=== PATIENT | male | born 1960 | race Hispanic/Latino ===

== ENCOUNTER 2023-01-31 05:57 | Day surgery (SDC) | payer OTHER ==
[2023-01-28 09:31] LABS: BASOPHILS # (AUTO) 0.1 (0.0-0.1); BASOPHILS % 0.8 % (0.0-1.0); EOSINOPHILS # (AUTO) 0.2 (0.0-0.4); EOSINOPHILS % 3.5 % (0.0-6.0); HEMATOCRIT 43.7 % (38.2-49.6); HEMOGLOBIN 14.7 g/dL (14.0-18.0); LYMPHOCYTES # (AUTO) 2.4 (1.0-3.2); LYMPHOCYTES % 38.7 % (18.0-39.1); MEAN CORPUSCULAR HEMOGLOBIN 30.6 pg (28-32); MEAN CORPUSCULAR HGB CONC 33.6 g/dL (31-35); MEAN CORPUSCULAR VOLUME 90.9 fL (81-99); MONOCYTES # (AUTO) 0.6 (0.2-0.8); MONOCYTES % 10.1 % (4.4-11.3); NEUTROPHILS # (AUTO) 2.9 (2.1-6.9); NEUTROPHILS % 46.6 % (38.7-80.0); PLATELET COUNT 218 x10e3/uL (140-360); RED BLOOD COUNT 4.81 x10e6/uL (4.3-5.7); RED CELL DISTRIBUTION WIDTH 13.3 % (11.7-14.4)
[2023-01-28 09:50] LABS: ANION GAP 11.8 mmol/L (8-16); BLOOD UREA NITROGEN 13 mg/dL (7-26); BUN/CREATININE RATIO 16 (6-25); CALCIUM 9.6 mg/dL (8.4-10.2); CARBON DIOXIDE 26 mmol/L (22-29); CHLORIDE 106 mmol/L (98-107); CREATININE, SERUM 0.81 mg/dL (0.72-1.25); GLUCOSE 111 mg/dL (74-118); POTASSIUM 3.8 mmol/L (3.5-5.1); SODIUM 140 mmol/L (136-145)
[~2023-01-31 05:57] MED LIST: AMLODIPINE BESYL5 MG PO; ATORVASTATIN CA20 MG PO; CELEBREX200 MG PO; HYDROCHLOROTHIA25 MG; LISINOPRIL10 MG PO
[2023-01-31] MEDS ORDERED: CELECOXIB 200 MG CAP ONE (06:34)
[2023-01-31] MEDS ORDERED: DEXAMETHASONE SOD PHOS 10 MG/1 ML VIAL ONE (06:35)
[2023-01-31] MEDS ORDERED: GABAPENTIN 300 MG CAP ONE (06:35)
[2023-01-31] MEDS ORDERED: CEFAZOLIN SODIUM 2 GM ONE (06:35)
[2023-01-31] MEDS ORDERED: LACTATED RINGER'S 1,000 ML ONE (06:35)
[2023-01-31] MEDS ORDERED: Vancomycin IV 1,000 MG ONE (06:49)
[2023-01-31] MEDS ORDERED: SODIUM CHLORIDE 0.9% 500ML 500 ML ONE (06:49)
[2023-01-31] MEDS ORDERED: TRANEXAMIC ACID 20 ML ONE (06:49)
[2023-01-31] MEDS ORDERED: ROPIVACAINE 246.25 MG, EPINEPHRINE HCL 1:1000 1ML 0.5 MG, CLONIDINE HCL 0.08 MG, KETORO... INJ ONE ×5 (07:30)
[2023-01-31] MEDS ORDERED: DOCUSATE SODIUM 100 MG CAP PO PRN (09:30)
[2023-01-31] MEDS ORDERED: HYDROCODONE/APAP 7.5MG-325MG 1 EA TAB PO PRN (09:30)
[2023-01-31] MEDS ORDERED: SODIUM CHLORIDE 0.9% 1000ML 1,000 ML IV SCH (09:30)
[2023-01-31] MEDS ORDERED: HYDROCODONE/APAP 5MG-325MG TAB PO PRN (09:30)
[2023-01-31] MEDS ORDERED: DIPHENHYDRAMINE HCL INJ 50 MG/ML VIAL IV PRN (09:30)
[2023-01-31] MEDS ORDERED: ONDANSETRON HCL INJ 2MG/ML 2ML 2 MG/ML VIAL IV PRN (09:30)
[2023-01-31 09:43] VITALS: TEMP 98.8
[2023-01-31] MEDS: FENTANYL CITRATE/PF 100MCG/2 ML INJ ONE ×2 (10:04→10:09)
[2023-01-31] MEDS ORDERED: IOPAMIDOL 370 MG/ML 100 ML INFUS..BTL INJ ONE (10:31)
[2023-01-31] MEDS ORDERED: HYDROCODON-ACE1 EA12 PO (11:39)
[2023-01-31 12:00] VITALS: BP 139/85; PULSE 93; RESP 16; O2SAT 97
[2023-01-31] MEDS ORDERED: MIDAZOLAM HCL 2 MG/2 ML VIAL ONE ×2 (12:20→14:13)
[2023-01-31] MEDS ORDERED: FENTANYL CITRATE/PF 100MCG/2 ML INJ ONE ×2 (12:20→14:13)
[2023-01-31] MEDS ORDERED: BUPIVACAINE 0.5%/EPI 30 ML SDV INJ ONE (12:57)
[2023-01-31] MEDS ORDERED: ONDANSETRON HCL INJ 2MG/ML 2ML 2 MG/ML VIAL ONE (14:21)
[2023-01-31] MEDS ORDERED: SEVOFLURANE INHAL SOLN 250 ML PEN BTL ONE (14:21)
[2023-01-31] MEDS ORDERED: LIDOCAINE HCL 2% LOCAL INJ 5 ML SDV VIAL INJ ONE (14:21)
[2023-01-31] MEDS ORDERED: SUCCINYLCHOLINE CHLORIDE 20 MG/ML 10ML VIAL ONE (14:21)
[2023-01-31] MEDS ORDERED: POVIDONE IODINE 0.05% 0.05 % ML PO ONE (14:21)
[2023-01-31] MEDS ORDERED: GLYCOPYRROLATE INJ 0.2 MG/ML VIAL ONE (14:21)
[2023-01-31] MEDS ORDERED: DEXAMETHASONE SOD PHOS INJ 4 MG/ML SDV ONE (14:21)
[2023-01-31] MEDS ORDERED: PROPOFOL IV EMULSION 10 MG/ML 20 ML VIAL ONE (14:21)
[2023-01-31] MEDS ORDERED: NEOSTIGMINE 1 MG/ML 10ML VIAL ONE (14:21)
[2023-01-31] MEDS ORDERED: ROCURONIUM BROMIDE 10 MG/ML 5ML VIAL IV ONE (14:21)
[2023-01-31] MEDS ORDERED: CELECOXIB 100 MG CAP PO SCH (17:00)
[2023-01-31] MEDS ORDERED: ASPIRIN 325 MG TAB PO SCH (17:00)
[2023-02-01] MEDS ORDERED: ACETAMINOPHEN 1000 MG/100 ML IV PRN (09:30)
== END 2023-01-31 12:30 | disposition home health service (06) ==
LOC: OR 05:57
PROVIDERS: ATTEND Specialist
DX: M16.12 Unilateral primary osteoarthritis, left hip (principal); Z96.641 Presence of right artificial hip joint; M06.9 Rheumatoid arthritis, unspecified; I10 Essential (primary) hypertension; E78.00 Pure hypercholesterolemia, unspecified; R06.02 Shortness of breath; Z71.3 Dietary counseling and surveillance; Z71.82 Exercise counseling; Z01.810 Encounter for preprocedural cardiovascular examination; Z01.812 Encounter for preprocedural laboratory examination; Z20.822 Contact with and (suspected) exposure to COVID-19; Z79.899 Other long term (current) drug therapy
CPT/HCPCS: 0223U; 27130; 36415; 72170; 80048; 85025; 86850; 86900; 86920; 93005; 97116; 97161; 97530; C1713; C1776 ×3; J0171; J0330; J1100 ×2; J1885; J2001; J2250; J2405; J2704; J2710; J2795; J3010; J3370; J7040; J7121; Q9967